=== PATIENT | female | born 1950 | race Caucasian/White ===

== ENCOUNTER 2019-02-06 10:35 | Day surgery (SDC) | payer MEDICARE ==
[2019-02-05 10:55] VITALS: BMI 27.4
--- NOTE | 2019-02-06 10:05 | HP ---
REASON FOR ADMISSION: "I'm here for back surgery." HISTORY OF PRESENT ILLNESS: Ms. Frandy Awad is a 68-year-old female, who came to our office in December with back and right leg pain. She has had this pain for years, and it initially responded to epidural steroid injections and activity modification. However, recently those maneuvers have not been providing the relief she wants. The pain starts in the back, radiates down the right leg. There are some pain on the top of the foot and numbness as well, and there may be a bit of weakness in lifting the right foot off the floor. All her symptoms are worse with standing. When they get particularly bad, she has to bend over her shopping cart or sit down. The pain is preventing her from enjoying her activities of daily living. Due to the stenosis we see in the lateral recesses at L4-L5, we offered her decompression, and she is here to proceed. PAST MEDICAL HISTORY: Anemia, chronic pain. PAST SURGICAL HISTORY: Hip replacement in 2019, carpal tunnel surgery in 2018. ADMISSION MEDICATIONS: 1. Aleve. 2. Aspirin. 3. Tylenol No. 3. 4. Sertraline. 5. Spironolactone. 6. Oxybutynin chloride. 7. Estradiol. 8. Atorvastatin. 9. Calcium. 10. Acyclovir. 11. Gabapentin. ALLERGIES: NO KNOWN DRUG ALLERGIES. SOCIAL HISTORY: The patient is a nonsmoker. She drinks alcoholic beverages occasionally, but has not used illicit drugs. FAMILY HISTORY: Free of any anesthesia complications. Her father is from heart disease, and her mother is likewise from heart disease. REVIEW OF SYMPTOMS: Otherwise negative. PHYSICAL EXAMINATION: VITAL SIGNS: The patient is at 5 feet 3 inches tall, weighs 150 pounds. NEUROLOGIC: She comes in to our neurosurgery clinic under her own power. Her cranial nerves are working well. Her cognitive function is normal. There is no dysphasia. On motor examination of lower extremities, I do find some weakness in the anterior tib and the EHL on the right compared to the left, but it is mild. The sensory alteration likewise shows some decreased sensation in L5 distribution on the right compared to the left, where the other dermatomes of the legs are preserved. The reflexes are normal at the knees, hypoactive at the ankles and there is no clonus. The toes are downgoing. ADMISSION FINDINGS: MR imaging reveals lateral recess stenosis at L4-5 that is quite severe, both on the right and left from overgrown facets and bone spurs. Flexion-extension views do not show instability. 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 The patient has failed injections and activity modification and years of medication and would like surgical intervention. INFORMED CONSENT: I discussed the indications, risks, benefits, alternatives, and expected outcomes from surgery. The risks we discussed included, but were not limited to, bleeding, infection, CSF leak, nerve damage, cauda equina injury, paralysis, incontinence, wheelchair dependence, major blood vessel injury, cardiopulmonary complications of anesthesia, and . Long-term risks include spinal instability and the need for future surgery. The patient understands these risks and is wanting to proceed. We will take her to the operating room. Job ID: [id number]
[2019-02-06] MEDS ORDERED: Thrombin 5000 UNITS/5 ML VIAL ONE (11:46)
[2019-02-06] MEDS ORDERED: Sodium Chloride 0.9% 10 ML ONE (11:46)
[2019-02-06] MEDS ORDERED: Bupivacaine PF 0.5% 30 ML VIAL ONE (11:46)
[2019-02-06 11:58] LABS: #Basophils 0.1 thou/uL (0.0-0.2); #Eosinphils 0.1 thou/uL (0.0-0.7); #Lymphocytes 2.2 thou/uL (1.20-3.40); %Basophils 0.6 % (0.0-1.0); %Eosinophils 1.3 % (0.0-10.0); %Lymphocytes 21.4 % (21.0-51.0); %Monocytes 9.4 % (0.0-10.0); %Neutrophils 67.3 % (42.0-75.0); Mean Corpuscular HGB CONC 33.4 g/dL (32.0-36.0); Mean Corpuscular Hemoglobin 32.7 pg (27.0-31.0); Mean Platelet Volume 6.6 fL (7.4-10.4); Platelet Count 314 thou/uL (130-400); RBC Distribution Width 12.1 % (11.5-14.5); Red Blood Cell (RBC) Count 4.27 mill/uL (4.20-5.40); White Blood Cell (WBC) Count 10.4 thou/uL (4.8-10.8)
[2019-02-06 12:16] LABS: PTT 30.1 SEC (22.9-36.1)
[2019-02-06] MEDS ORDERED: Fentanyl 100 MCG/2 ML VIAL ONE ×4 (12:20→16:14)
[2019-02-06] MEDS ORDERED: Morphine 2 MG/ML SYRINGE SLOW IVP PRN (12:47)
[2019-02-06] MEDS ORDERED: Ondansetron PF 4 MG/2 ML Vial IVP PRN (12:47)
[2019-02-06] MEDS ORDERED: Promethazine 25 MG TAB PO PRN (12:47)
[2019-02-06] MEDS ORDERED: diphenhydrAMINE 50 MG/ML VIAL IVP PRN (12:47)
[2019-02-06] MEDS ORDERED: Bisacodyl 10 MG SUPP PR PRN (12:47)
[2019-02-06] MEDS ORDERED: traMADol HCl 50 MG TAB PO PRN ×2 (12:47)
[2019-02-06] MEDS ORDERED: Acetaminophen 650 MG Suppository PR PRN (12:47)
[2019-02-06] MEDS ORDERED: Morphine 4 MG/ML VIAL SLOW IVP PRN (12:47)
[2019-02-06] MEDS ORDERED: Acetaminophen/Codeine 30-300mg Tablet PO PRN ×2 (12:47)
[2019-02-06] MEDS ORDERED: Milk Of Magnesia 30 ML UDCUP PO PRN (12:47)
[2019-02-06] MEDS ORDERED: Acetaminophen 325 MG TAB PO PRN (12:47)
[2019-02-06] MEDS ORDERED: tiZANidine HCl 4 MG TAB PO PRN (12:47)
[2019-02-06] MEDS ORDERED: diphenhydrAMINE 25 MG CAP PO PRN (12:47)
[2019-02-06] MEDS ORDERED: Promethazine HCl 25 MG/ML VIAL IM PRN (12:47)
[2019-02-06] MEDS ORDERED: Promethazine HCl 12.5 MG SUPP PR PRN (12:47)
[2019-02-06] MEDS ORDERED: Sodium Chloride 0.9% 1,000 ML IV SCH (13:00)
[2019-02-06] MEDS ORDERED: Scopolamine 1.5 mg/72 hour Patch TD SCH (13:00)
[2019-02-06] MEDS ORDERED: CEFAZOLIN 2 GM in Premix Bag 1 BAG IVPB SCH (13:00)
[2019-02-06] MEDS ORDERED: ePHEDrine/0.9% NaCl/PF SYRINGE 50 mg/10 ml ONE (13:26)
[2019-02-06] MEDS ORDERED: Dexamethasone 20 MG/5 ML VIAL ONE (13:26)
[2019-02-06] MEDS ORDERED: PROPOFOL 200 MG/20 ML VIAL ONE (13:26)
[2019-02-06] MEDS ORDERED: Lidocaine 1% PF 5 ML VIAL ONE (13:26)
[2019-02-06] MEDS ORDERED: Ondansetron PF 4 MG/2 ML Vial ONE (13:26)
[2019-02-06] MEDS ORDERED: Rocuronium Bromide 10 MG/ML (10ML VIAL) ONE (13:26)
[2019-02-06] MEDS ORDERED: Glycopyrrolate 0.2 MG/ML 5 ML SYRINGE ONE (13:26)
[2019-02-06] MEDS ORDERED: Gabapentin 300 MG CAP PO SCH (15:00)
[2019-02-06] MEDS ORDERED: HYDROmorphone 0.5 MG/0.5 ML SYRINGE ONE ×3 (15:51→16:11)
[2019-02-06] MEDS ORDERED: traMADol HCl 50 MG TAB ONE (17:14)
[2019-02-06] MEDS ORDERED: HYDROcodone/Acetaminophen 5/325 mg Tablet ONE (17:23)
[2019-02-06] MEDS ORDERED: tiZANidine HCl 4 MG TAB ONE (18:09)
[2019-02-06] MEDS ORDERED: Atorvastatin Calcium 20 MG TAB PO SCH (21:00)
[2019-02-06] MEDS ORDERED: Spironolactone 100 MG TAB PO SCH (21:00)
[2019-02-06] MEDS ORDERED: Oxybutynin ER 5 MG TAB PO SCH (21:00)
[2019-02-06] MEDS ORDERED: Estradiol 1 MG TAB PO SCH (21:00)
--- NOTE | 2019-02-06 21:36 | OP ---
DATE OF PROCEDURE: 02/06/2019 INFORMATICS APPLICATION ANALYST: None. PREOPERATIVE INDICATION: Treat pain and prevent neurological deterioration. PREOPERATIVE DIAGNOSIS: Lumbar spinal stenosis with neurogenic claudication at L4-L5. POSTOPERATIVE DIAGNOSIS: Lumbar spinal stenosis with neurogenic claudication at L4-L5. PROCEDURES PERFORMED: Decompressive laminectomy, medial facetectomy, foraminotomy, L4-L5. PREOPERATIVE MEDICATION: Ancef 2 g IV. DRAIN NUMBER: Zero. DRAIN TYPE: None. DESCRIPTION OF PROCEDURE: The patient was brought to the operating room. General endotracheal anesthesia was induced. The patient was positioned prone on the operating table and a lateral fluoro radiograph was used to plan our incision. The lumbar skin was sterilely prepped and draped. We opened our incision with a 10 blade knife and controlled bleeding with bipolar and monopolar cautery. We used monopolar cautery to dissect through subcutaneous tissues to the thoracodorsal fascia. We incised the fascia in the midline and reflected the paraspinal muscles off the spinous process and lamina of L4 and L5. A self-retaining retractor was placed and a lateral fluoro radiograph confirmed the levels upon which we were operating. We then used Adson and Kerrison rongeurs to both remove the spinous process of L4 and then fashioned a laminectomy. We widened our laminectomy defect by using a high-speed drill to thin the bone and then Kerrison rongeurs to perform medial facetectomies at L4-L5 on both sides. We undermined the lateral recesses and decompressed the traversing L5 nerve roots. We performed foraminotomies over the exiting portions of the L5 nerve roots and L4 nerve roots. We ensured that a Broderick ball probe could pass through the lateral recess and out the foramen with the L4 and L5 nerve roots. We irrigated with bacitracin irrigation. We waxed the bone edges. We infused local anesthetic in the paraspinal muscles. We closed the wound in anatomical layers and we applied a sterile dressing. This was a clean case, no contamination. Job ID: [id number]
[2019-02-07] MEDS ORDERED: Acyclovir 400 mg Tablet PO SCH (09:00)
== END 2019-02-06 19:30 | disposition home or self-care (01) ==
LOC: SDC 10:35
PROVIDERS: ATTEND Neurological Surgery
PROC: 01NB0ZZ Release Lumbar Nerve, Open Approach (ICD-10-PCS; principal; 2019-02-06)
DX: M48.062 Spinal stenosis, lumbar region with neurogenic claudication (principal); M54.16 Radiculopathy, lumbar region; E78.5 Hyperlipidemia, unspecified; F41.9 Anxiety disorder, unspecified; G89.29 Other chronic pain; Z79.1 Long term (current) use of non-steroidal anti-inflammatories (NSAID); Z79.82 Long term (current) use of aspirin; Z79.899 Other long term (current) drug therapy
CPT/HCPCS: 36415; 76000; 85025; 85610; 85730; J0690; J1100; J1170; J2001; J2405; J2704; J3010; J3370; J3490; S0020